=== PATIENT | male | born 1985 | race Caucasian/White ===

== ENCOUNTER 2023-06-29 06:26 | Observation (INO) | payer OTHER, SELFPAY ==
[2023-06-28 23:41] VITALS: BMI 23.8
[2023-06-28 23:46] VITALS: BP 131/90
[2023-06-29] VITALS (8 sets, daily range): BP systolic 115–139; BP diastolic 63–85; BMI 23.4
[2023-06-29 00:24] LABS: COVID-19 Antigen Negative (Negative)
--- NOTE | 2023-06-29 02:07 | ED.GENMED ---
History of Present Illness
General
Chief Complaint: Throat Problem
Source: patient and family ([employer])
Exam Limitations: other (language barrier)
Time Seen by Provider: 06/29/23 01:55
Travel History
Have you had any contact with someone who has COVID-19?: No
Do you have any symptoms of coronavirus? Fever > 100 degrees, chills, cough, shortness of breath, sore throat, loss of taste or smell, muscle aches, or headache?: Yes
Symptoms:: sore throat
History of Present Illness
History of Present Illness:
This is a 38 year old male that comes in with his sister with c/o sore throat and fever. Sister states that he has been sick for the past 3 weeks. State that he will start to fell better and then gets sick again. States that he has a sore throat
that has been going on for 2 weeks. States that again he will get a little better and then on Friday it started again. States that he has been taking a lot of Ibuprofen for pain. States that he also has pain in the kidney area. States that his temp
as been elevated and then it will go down. State sthat he has been 40 degrees C. States that he also had diarrhea. Denies any chills, chest pain, SOB, abd pain, nausea, vomitinig, headache, dizziness, urinary burning.
Past History
Past History
ED Past Medical History: None; Negative Asthma, HTN, Hypercholesterolemia or NIDDM
ED Past Surgical History: None
Social History
Tobacco: Non-smoker
Alcohol: None
Personal:
Living: with family
Review of Systems
Review of Systems
All Other Systems: ROS reviewed and negative except as documented in HPI and ROS
Constitutional: Reports fever; Denies chills
EENT: Reports sore throat
Respiratory: Reports no symptoms; Denies cough or trouble breathing
Cardiac: Reports no symptoms; Denies chest pain
ABD/GI: Reports diarrhea; Denies abdominal pain, nausea or vomiting
: Reports other (Discomfort in the kidney area); Denies dysuria, frequency or urgency
Musculoskeletal: Reports no symptoms
Skin: Reports no symptoms
Neurological: Reports no symptoms; Denies dizzy or headache
Psychiatric: Reports no symptoms
Phy Exam
General Physical Exam
General Presentation: no apparent distress
General age: appears stated age
General Skin: warm and dry
General Habitus: normal
General Mental: alert
General Hydration: appears well hydrated
ENT Exam
ENT Exam: TM's normal, neck supple and other (Questionable peritonsillar abscess left sided. Unable to see the uvula)
Eye Exam
Eye Exam: EOMI
Cardiovascular Exam
Cardiovascular Exam: regular rate/rhythm, no edema, no murmur and normal peripheral pulses
Pulmonary Exam
Pulmonary Exam: lungs clear, no respiratory distress, no rales, chest non tender, no crackles, no rhonchi, no wheezing and no cough
Gastrointestinal Exam
Gastrointestinal Exam: normal bowel sounds, non tender, soft, no organomegaly, no pulsatile mass and non distended
Musculoskeletal Exam
Musculoskeletal Exam: full ROM and no edema
Skin Exam
Skin Exam: normal color, warm/dry, no rash and no petechia
Psychiatric Exam
Psychiatric Exam: normal mood/affect
Course
Orders/Labs/Results
Orders:
Orders
06/28/23 23:50
COVID-19 Antigen Urgent
Source: Nasal Swab
Influenza A+B Rapid Molecular Urgent
REG Source: Nasal Swab
Specimen Description:
06/29/23 02:06
CT Neck With Iv Contrast Urgent
Comment: Concern for left sided abscess
Reason For Exam: sore throat.fever
Dexamethasone Sod Phosphate [Decadron] 20 mg IV NOW STA
Ketorolac [Toradol] 30 mg IV NOW STA
06/29/23 02:23
Complete Blood Count/With Diff Urgent
Comprehensive Metabolic Panel Urgent
Rapid Strep Group A Urgent
REG Source: Throat/Pharynx
Specimen Description:
Date Specimen was Collected: 06/29/23
Time Specimen was Collected: 02:22
06/29/23 03:40
Urinalysis Reflex To Culture Urgent
Date Specimen was Collected: 06/29/23
Time Specimen was Collected: 03:39
Abnormal Lab Results
06/29/23 06/29/23
02:23 03:40
WBC 18.4 H 10^3/uL
(4.8-10.8)
RBC 4.69 L 10^6/uL
(4.70-6.10)
Hgb 12.8 L g/dL
(13.0-18.0)
Hct 38.5 L %
(39.0-52.0)
Plt Count 463 H 10^3/uL
(130-400)
Abs Immat Gran (auto) 0.1 H 10^3/uL
(0-0.05)
Absolute Neuts (auto) 14.4 H 10^3/uL
(1.4-6.5)
Absolute Monos (auto) 1.4 H 10^3/uL
(0.1-0.6)
Neutrophils % 78.6 H %
(42.2-75.2)
Lymphocytes % 11.8 L %
(20.5-51.1)
Glucose 103 H mg/dl
(70-99)
Urine Ketones 2+ A
(Negative)
Urine Bilirubin 1+ A
(Negative)
06/29/23 02:23
06/29/23 02:23
Leukocytosis, H/H slightly low. Plt slightly elevated. Glucose nonfasting. COVID, Influenza and rapid strep all negative.
Vital Signs
Initial and Last Documented VS:
Initial Vital Signs
Temp Pulse Resp BP Pulse Ox
98.9 F 97 16 131/90 99
06/28/23 23:46 06/28/23 23:46 06/28/23 23:46 06/28/23 23:46 06/28/23 23:46
Last Documented Vital Signs
Temp Pulse Resp BP Pulse Ox
98.9 F 81 16 120/68 97
06/28/23 23:46 06/29/23 03:00 06/29/23 03:00 06/29/23 03:00 06/29/23 03:02
MDM/Problems Addressed
Differential Diagnosis Includes:
Strep Throat. Peritonsillar abscess, UTI
MDM/Problems Addressed:
This is a 38 year old male that comes in with c/o sore throat. Sister state that he has had a sore throat and been sick for 3 weeks. States that he has a fever and then it will go away and come back. State that he also c/o pain in the kidney area.
States that he did have diarrhea.
Will check labs, COVID, Influenza. CT soft tissue neck, and urine. Will give steroids and Toradol.
Back into see patient and sister. Reviewed CT report. Will admit patient and give IV antibiotics. Will consult ENT. Hospitalist notified.
Chronic conditions affecting care:
NA
Acute Exacerbation and/or Progression of Chronic Illness:
NA
*Radiology
Radiology exam reviewed: radiology read reviewed (CT night hawk- 1.2 X 1.2 cm left peritonsillar abscess. Pharyngitis, tonsillitis and uvitis. No retropharyngeal fluid collection. Lung apices clear. Reactive cervical lymph nodes. Vascular structures
appear patent. )
*Pulse Oximetry
Patient hypoxic: no
*EKG
Interpreted by ED Provider?: NA
Rate: EKG- N/A
*Fire Fighting Equipment Specialist Interpretation
Rate: Fire Fighting Equipment Specialist- N/A
*Critical Care Note
Total Time (30-74mins, 75-104mins- exclusive of procedures): Not Applicable
ED Attending Note
-
Portions of this chart may have been created with voice recognition software.� Occasional wrong word or��sound alike� substitutions may have occurred due to the inherent limitations of voice recognition software.
Discharge Plan
Departure
Patient Disposition: Admit
Date of Disposition: 06/29/23
Time of Disposition: 04:48
Admit to: Telemetry
Presentation/result/management discussed w/ accepting MD/DO: Hospitalist
Patient with high blood pressure during this ER visit?: No
Condition: Good
Covid-19: Negative COVID-19
Discharge Problem:
Peritonsillar abscess, Acute tonsillitis, Uvitis
Referrals:
Rosalinda Carlson DO [Family Provider] -
Interventions
Interventions:
*General Assessment Last Done: 06/28/23 23:46
*ED COVID-19 Vaccine History Last Done: 06/28/23 23:46
ED-EENT Assessment Last Done: 06/29/23 03:02
ED- Pulmonary Assessment Last Done: 06/29/23 03:02
Discharge Date and Time
Print Language: URDU
[2023-06-29] MEDS: TORADOL 30 MG IV ×2 (02:30→10:39)
[2023-06-29] MEDS: DECADRON 20 MG IV (02:31)
[2023-06-29 02:56] LABS: % Basophils 0.3 % (0-2); % Eosinophils 1.5 % (0-6); % Immature Granulocytes 0.4 % (0-0.5); % Lymphocytes 11.8 % (20.5-51.1); % Monocytes 7.4 % (1.7-9.3); % Neutrophils 78.6 % (42.2-75.2); Absolute Basophils 0.1 10^3/uL (0-0.2); Absolute Eosinophils 0.3 10^3/uL (0-0.7); Absolute Immature Granulocytes 0.1 10^3/uL (0-0.05); Absolute Lymphocytes 2.2 10^3/uL (1.2-3.4); Absolute Monocytes 1.4 10^3/uL (0.1-0.6); Absolute Neutrophils 14.4 10^3/uL (1.4-6.5); Hematocrit 38.5 % (39.0-52.0); Hemoglobin 12.8 g/dL (13.0-18.0); Mean Corp Hgb Conc. 33.2 g/dL (33.0-37.0); Mean Corpuscular Hgb 27.3 pg (27.0-31.0); Mean Corpuscular Volume 82.1 fL (80.0-94.0); Mean Platelet Volume 9.1 fL (7.4-10.4); Nucleated Red Blood Cells % 0 % (-); Platelet Count 463 10^3/uL (130-400); Red Blood Cell Count 4.69 10^6/uL (4.70-6.10); Red Cell Dist. Width 12.6 % (11.5-14.5); White Blood Cell Count 18.4 10^3/uL (4.8-10.8)
[2023-06-29 03:10] LABS: ALT (SGPT) 18 U/L (0-50); AST (SGOT) 19 U/L (17-59); Albumin 4.3 g/dl (3.5-5.0); Alkaline Phosphatase 110 U/L (38-126); Blood Urea Nitrogen 15 mg/dl (9-20); Calcium 9.5 mg/dl (8.4-10.2); Carbon Dioxide 22 mmol/L (22-30); Chloride 106 mmol/L (98-107); Estimated Creatinine Clearance 121 ml/min; Glucose 103 mg/dl (70-99); Potassium 4.1 mmol/L (3.5-5.1); Sodium 137 mmol/L (135-145); Total Bilirubin 0.8 mg/dl (0.2-1.3); Total Protein 7.4 g/dl (6.3-8.2); eGFR > 60.00
[2023-06-29 03:46] LABS: Urine Albumin Negative (Neg - Trace); Urine Bilirubin 1+ (Negative); Urine Character Clear (Clear); Urine Color Yellow; Urine Glucose Negative (Negative); Urine Ketone 2+ (Negative); Urine Leukocyte Negative (Negative); Urine Nitrite Negative (Negative); Urine Occult Blood Negative (Negative); Urine Specific Gravity 1.025 (<1.030); Urine Urobilinogen Negative (Neg - 1+)
[2023-06-29] MEDS: CLEOCIN 52 MG IV (05:33)
--- NOTE | 2023-06-29 06:33 | HPS.HSE ---
Family Physician
-
Family Physician: Rosalinda Carlson
Chief Complaint
-
sore throat and fever
History of Present Illness
38M non Azeri speaker , no significant PMHx pw sore throat and fever.
Translate by Sister - states that he has been sick for the past 3 weeks.
He has a sore throat that has been going on for 2 weeks
He has been taking a lot of Ibuprofen for pain.
Denies any chills, chest pain, SOB, abd pain, nausea, vomitinig, headache, dizziness, urinary burning.
Medical History
Past Medical History
Past Medical History: Reports None
Past Surgical History: Reports None
Social History
Tobacco: Non-smoker
Alcohol: None
Personal:
Living: With Family
Family History
Family History: Not pertinent
Allergies / Home Medications
Allergies reflects when Allergies were last updated in [facility].
Home Medications with original date entered in [facility]
Allergy/Medication List:
Allergies
Allergy/AdvReac Type Severity Reaction Status Date / Time
No Known Allergies Allergy Unverified 06/28/23 23:48
Home Medications
No Meds [No Current Medications] 06/29/23
Review of Systems
-
Constitutional: Reports Fever
EENT: Reports Sore Throat
Respiratory: Reports No Symptoms
Cardiac: Reports No Symptoms
Abdomen/GI: Reports No Symptoms
: Reports No Symptoms
Musculoskeletal: Reports No Symptoms
Skin: Reports No Symptoms
Neurological: Reports No Symptoms
Endocrine: Reports No Symptoms
Hematologic/Lymphatic: Reports No Symptoms
Psych: Reports No Symptoms
Physical Exam
Vital Signs
Vital Signs
Temp Pulse Resp BP Pulse Ox
98.9 F 73 16 115/63 96
06/28/23 23:46 06/29/23 06:15 06/29/23 06:15 06/29/23 06:00 06/29/23 06:15
Physical Exam
General: No Apparent Distress, Comfortable and Other (sleeping )
HEENT: NormoCephalic, Anicteric, Moist mucous membranes and Other ( Unable to see the uvula)
Respiratory: Clear
Cardiac: S1/S2 and Regular Rhythm; No Tachycardia
Breast: Deferred by me
GI: Soft, Non Tender, Non Distended and Normal Bowel Sounds
Rectal: Deferred by Provider
Genito-urinary: Deferred by me
Musculoskeletal: No Edema
Skin: Warm
Neuro: Other (sleeping , easily arousable)
Laboratory Results
-
06/29/23 02:23
06/29/23 02:23
Laboratory Results
Total Bilirubin 0.8 mg/dl (0.2-1.3) 06/29/23 02:23
AST 19 U/L (17-59) 06/29/23 02:23
ALT 18 U/L (0-50) 06/29/23 02:23
Alkaline Phosphatase 110 U/L (38-126) 06/29/23 02:23
Data Reviewed
-
CT Scan: Report Reviewed by me
Lab Data: Labs Reviewed by me
Impression/Plan
-
Data
WCC 18s
Hgb 12.8
Plt 463
nl CMP
NEG UZ
NEG Covid
CT neck with IV contrast
1.2 x 1.2 cm Lt peritonsillar abscess
Tonsilitis, Uvietis
No retropharyngeal collection
No prior admission
ASSESSMENT & PLAN
Acute peritonsillar abscess
No CT evidence of AW compromise
- NPO and IVF
- IV Decadron 4mg q8h x 3 doses
- IV Unasyn in place of Clindamycin
- Tylenol prn
- ENT consult
DVT Px: SCD
Code: Full code
IMU
--- NOTE | 2023-06-29 07:43 | EDRN ---
the pt was received from previous second shift supervisor RN, the pt is resting in stretcher in the lowest position, side rails up x2, call henderson within reach, HOB elevated, no s/s of distress, VS WNL, paper report was tubed up to the receiving unit, will
continue to monitor the pt closely
--- NOTE | 2023-06-29 08:06 | W.PN.UPDATE ---
Update Note
Progress Note Update
Patient admitted early this morning for peritonsillar abscess. Status post I&D by ENT.
Currently on steroids and antibiotics.
Will order him a soft diet.
Discharge today if tolerating a soft diet.
Continue Augmentin for 10 days after discharge, Medrol Dosepak, follow-up with ENT later this week for postop check.
--- NOTE | 2023-06-29 09:43 | W.PN.ENT ---
Today's Communication
-
d/c planning
Impression / Plan
-
Patient w a left INCIDENT ANALYST Iand D'd with improved trismus. Recommend advancing diet as tolerated, augmentin x10d at d/c. Can do medrol dose karon as well. f/u w ENT later this week for post-op check. He can go home later today pending PO trial per ENT.
full c/s to follow.
Subjective Data
-
The patient is non-Colombian speaking, but his family translates. He has had on/off sore throats for the past few weeks. Pain was worsening and he presented to the ER where CT showed a left-sided peritonsillar abscess.
Objective Data
-
Vital Signs
Temp Pulse Resp BP Pulse Ox
98.0 F 76 16 116/64 100
06/29/23 09:30 06/29/23 09:30 06/29/23 09:30 06/29/23 09:30 06/29/23 09:30
Lab Results
06/29/23 02:23
06/29/23 02:23
Calcium 9.5 mg/dl (8.4-10.2) 06/29/23 02:23
Total Bilirubin 0.8 mg/dl (0.2-1.3) 06/29/23 02:23
AST 19 U/L (17-59) 06/29/23 02:23
ALT 18 U/L (0-50) 06/29/23 02:23
Alkaline Phosphatase 110 U/L (38-126) 06/29/23 02:23
Urine Color Yellow 06/29/23 03:40
Urine Clarity Clear (Clear) 06/29/23 03:40
Urine pH 5.0 (5.0-9.0) 06/29/23 03:40
Ur Specific [place] 1.025 (<1.030) 06/29/23 03:40
Urine Ketones 2+ (Negative) A 06/29/23 03:40
Physical Exam
-
Effacement of the left soft palate and uvular deviation to the right. Mild trismus. No palpable LAD
The left INCIDENT ANALYST was incised and drained at the bedside. About 5ml of pus removed. Patient's trismus improved.
Data Reviewed
-
Radiology Results: Report Reviewed and Image Reviewed
[2023-06-29] MEDS: UNASYN IV (10:38)
[2023-06-29] MEDS: DECADRON 4 MG IV (10:38)
[2023-06-29] MEDS: NSS 1000 IV (10:46)
--- NOTE | 2023-06-29 11:21 | CM ---
Initial assessment completed with patient and sister. Sister speaks Bol[place]ian. Patient lives with his sister in a 2 story townhouse with basement, B/B on 2nd floor, 2 steps to enter. [employer]IC LOC[employer], patient was independent, drove and works PT. No DME and no
in-home services. [facility]acy is [facility] in [place] and PCP is Dr. Apolonia Dunlap. ANTICIPATE NO SKILLED NEEDS AT DISCHARGE.
--- NOTE | 2023-06-29 14:01 | CM ---
Patient has been medically cleared for discharge to home with no additional skilled services. Sister will transport home.
--- NOTE | 2023-06-29 14:38 | W.DCSUMMARY ---
Discharge Summary
Discharge Data
Date of Admission: 06/29/23
Date of Discharge: 06/29/23
-
Pending Results: No
Hospital Course
Discharge diagnosis:
Peritonsillar abscess status post incision and drainage
Consults: ENT
CT neck with IV contrast:
Findings consistent with pharyngitis, uvulitis, and tonsillitis, with 1.4 cm left peritonsillar abscess. Reactive cervical adenopathy. No retropharyngeal soft tissue swelling.
Hospital course:
38-year-old s[place] male with no significant past medical history presented to the ER with sore throat and fever. He has been sick for 3 weeks, and taking a lot of ibuprofen for pain. Patient was found to have left peritonsillar
abscess. He was seen in conjunction with ENT, and had bedside I&D of his abscess on 06/29/2023.
While in the hospital, he was treated with IV dexamethasone, IV Unasyn. He tolerated a diet. He is medically stable and cleared by ENT for discharge on Augmentin to complete a 10-day course, and a Medrol Dosepak. He has been instructed to
follow-up with ENT in the office in 2-3 weeks days for postop check.
Disposition: Home self-care
Discharge Plan
-
Patient Disposition: Home (Routine Discharge)
Discharge Diagnosis/Procedures: Peritonsillar abscess status post incision and drainage
Condition: Fair
Diet: Regular
Additional Diets: Eat a soft diet
Driving Restrictions: As prior to admission
Referrals:
Rosalinda Carlson DO [Family Provider] - in one week
Shivani Wayne MD [Active] - in two to three days
Prescriptions:
New
amoxicillin-pot clavulanate 875-125 mg tablet
1 tab PO BID 10 Days Qty: 20 0RF
methylprednisolone [Medrol (Humble)] 4 mg tablets,dose pack
See Rx Instructions .ROUTE .COMPLEX Qty: 21 0RF
Rx Instructions:
orally per package directions
lidocaine HCl 2 % solution
See Rx Instructions .ROUTE .COMPLEX Qty: 100 0RF
Rx Instructions:
Mix 15 mL of solution with 15 mL of water, gargle for 5 min every 3 hours as needed for pain or before meals
Discharge Orders:
Discharge Patient (As Directed); Ordered 06/29/23
Ordered By: Kory German
Discharge Date and Time
Discharge Date/Time: 06/29/23 15:54
Print Language: WELSH
--- NOTE | 2023-06-29 15:54 | PTCARENOTE ---
pt admitted to this am at 0900. pt [place] speaking and all communication translated by sister and then nephew. s/p I&D at bedside this am by Dr Wayne. pt c/o throat discomfort and medicated with Toradol per MAY. pt slept and then when pt
awoke-instructed on soft diet. tolerated diet with difficulty and discharged to home with spouse and nephew.
== END 2023-06-29 15:54 | disposition home or self-care (01) ==
LOC: 2 SOUTH 06:26
PROVIDERS: Clinical Nurse Specialist Family Health; ADMITTING PHYSICIAN Internal Medicine; ATTENDING PHYSICIAN Family Medicine; CONSULT PHYSICIAN Otolaryngology; EMERGENCY PHYSICIAN Emergency Medicine; FAMILY PHYSICIAN Family Medicine
DX: J36 Peritonsillar abscess (principal); B95.0 Streptococcus, group A, as the cause of diseases classified elsewhere; Z11.52 Encounter for screening for COVID-19
CPT/HCPCS: 42700; 70491; 80053; 81003; 85025; 87070; 87147; 87502; 87811; 87880; 96365; 96375; 99285; G0378; Q9967